=== PATIENT | female | born 1975 | race American Indian/Alaskan Native ===

== ENCOUNTER 2019-11-10 10:07 | Emergency (ER) | payer SELFPAY ==
[2019-11-10 10:17] VITALS: BP 125/77
== END 2019-11-10 11:40 | disposition left against medical advice (07) ==
LOC: ED 10:07
DX: R20.2 Paresthesia of skin (principal); Z53.21 Procedure and treatment not carried out due to patient leaving prior to being seen by health care provider
CPT/HCPCS: 82962; 93005